=== PATIENT | female | born 1975 ===

== ENCOUNTER → 2022-12-28 10:54 | Outpatient (CLI) | payer OTHER, SELFPAY ==
--- NOTE | ~2022-12-28 | CT_ITS ---
CT of the Abdomen and Pelvis: Indication: Abdominal pain Technique: 2.5 mm axial scans were obtained through the abdomen and pelvis following intravenous adm inistration of 100 cc of Omnipaque 350. Dose reduction technique was used on this scan by utilizing a utomated exposure control and iterative reconstruction technique. The dose-length product (DLP) was 3 40.94 mGy-cm. Findings: Scans through the lung bases are unremarkable. The liver, spleen, pancreas, gallbladder, adrenals and kidneys are within normal limits. No evidence of aortic aneurysm. No lymphadenopathy. Questionable wall thickening of the gastric antrum. No bowel obstruction. No abscess or free air. Images through the pelvis were performed. Urinary bladder unremarkable. No pelvic mass seen. No ascit es. Impression: Questionable wall thickening of the gastric antrum. Correlate for gastritis/peptic ulcer disease. Reviewed, dictated and finalized at [facility]. [employer] Impression: Questionable wall thickening of the gastric antrum. Correlate for gastritis/pep tic ulcer disease.
== END ==
PROVIDERS: PCP Family Medicine; Visit Provider Family Medicine
DX: R10.31 Right lower quadrant pain (principal)
CPT/HCPCS: 74177; Q9967